=== PATIENT | female | born 1980 | race African-American/Black ===

== ENCOUNTER 2017-03-31 11:35 | Emergency (ER) | payer MEDICAID ==
[~2017-03-31] VITALS: Ht 157.5 cm; Wt 52.0 kg
[2017-03-31 13:31] VITALS: BP 120/81
== END 2017-03-31 16:32 | disposition home or self-care (01) ==
LOC: ER 12:02
DX: R11.2 Nausea with vomiting, unspecified (principal)
CPT/HCPCS: 81025; 99282; Z7610